=== PATIENT | male | born 1965 | race Caucasian/White ===

== ENCOUNTER 2020-04-01 16:36 | Inpatient (IN) | payer BC ==
[~2020-04-01] VITALS: Ht 175.3 cm; Wt 107.5 kg
[2020-04-01] MEDS ORDERED: PERP8TAB6 PO (22:07)
[2020-04-01] MEDS ORDERED: PROP10TA10 PO (22:07)
[2020-04-01] MEDS ORDERED: IBUP-1984 PO (22:07)
[2020-04-01] MEDS ORDERED: MELA3TAB39 PO (22:07)
[2020-04-01] MEDS ORDERED: OLAN10TA19 PO (22:07)
[2020-04-01] MEDS ORDERED: loperamide 2mg capsule PO PRN (22:15)
[2020-04-01] MEDS ORDERED: hydrOXYzine 25 MG tablet PO PRN (22:15)
[2020-04-01] MEDS ORDERED: acetaminophen 325mg tablet PO PRN (22:15)
[2020-04-01] MEDS ORDERED: magnesium hydroxide 30ml (MOM) UD suspension PO PRN (22:15)
[2020-04-01] MEDS ORDERED: mag hydrox/Alum hydrox/simeth 30ml oral suspension PO PRN (22:15)
--- NOTE | 2020-04-01 22:30 | NUR ---
ADMIT NOTE: The patient ambulated to [facility], accompanied by security. He entered the unit at 2114, and was led to the shower where 2 RNs checked his skin. There were no skin problems identified. He was provided hygiene products and shown the unit. The patient was offered food, but he declined. The patient went to [facility] because he was having thoughts of drowning himself and was worried about thoughts of harming others. He was cooperative with assessment. He is appropriately dressed and groomed. His affect was initially restricted, however when talking more about what was going on he became quite tearful. He reports a history of treatment for Schizophrenia and Bipolar disorder. He reports auditory hallucinations that tell him to do things and degrade him.
[2020-04-01] MEDS ORDERED: ibuprofen tablet 400 MG TABLET PO PRN (22:35)
[2020-04-02] MEDS: LORazepam 1 MG tablet PO PRN (02:35)
[2020-04-02 07:00] VITALS: BP 145/86
[2020-04-02 07:44] LABS: HEMOGLOBIN A1C 5.6 % (4.5-6.2)
[2020-04-02 08:00] LABS: CHOL/HDL RATIO 4.2 (0.00-4.99); CHOLESTEROL 143 MG/DL (0-200); HDL CHOLESTEROL 34 MG/DL (35-60); LDL CHOLESTEROL 94 MG/DL (50-100); TRIGLYCERIDES 79 MG/DL (20-135)
[2020-04-02] MEDS ORDERED: propranolol 10mg tablet PO SCH (08:00)
[2020-04-02] MEDS: perphenazine 8mg tablets PO SCH (08:50)
--- NOTE | 2020-04-02 10:00 | NUR ---
Group Therapy: Process Group This Clinicians goals for this process group were as follows: (1) Ask scaling questions about Patients current anxiety, depression, and irritability symptoms as a check-in. (2) Share psychoeducation about emotional escalation as it relates to stress and negative symptoms, Fight, flight, freeze. (3) Share psychoeducation on principles of mindfulness and emotional relaxation techniques that Patients may utilize to reduce the acuity of unwanted emotional escalation. (4) Provide psychoeducation on the STOPP acronym: Stop, Take a Breath, Observe the situation, Put things into perspective, and, Practice what works. (5) Process Clients thoughts and reflections on this topic within the group milieu. Patient identified experiencing the following levels of anxiety, depression, and anger/irritability while present in the group milieu. Anxiety: 12/10 Depression: 01/07 Anger irritability: 12/10 Patient presented as open and cooperative within the group milieu. Patient was dressed in standard, green, hospital scrubs. Patient presented as verbally engaged during the discussion on physical and mental symptoms that typically accompany elevated states of maladaptive emotional escalation, and coping skills that one could utilized to reduce levels of emotional reactivity. Patient shared that often he tries to, "Ignore," people or situations that tend to lead him to feel unwanted emotional escalation. Patient reported that depression sometimes made him feel, "Jittery," in his body. John Cordero MA, LOI Addendum: 04/02/20 at 1127 by John Cordero SS Amended: Links added.
--- NOTE | 2020-04-02 17:28 | NUR ---
Nursing Progress Note: Legal hold: 5150 Client on involuntary status for DTS. Report received from EDDIE Benavides with use of SBAR. Why are they here: The patient went to [facility] because he was having thoughts of drowning himself and was worried about thoughts of harming others. He was cooperative with assessment. He is appropriately dressed and groomed. His affect was initially restricted, however when talking more about what was going on he became quite tearful. He reports a history of treatment for Schizophrenia and Bipolar disorder. He reports auditory hallucinations that tell him to do things and degrade him. Assessment What has happened this shift: Received pt sleeping at shift change. Pt. later sitting in room looking out the window. Patient reports that his marriage is over and his is asking for a divorce after 30 years of marriage, stating that they just grew apart. Patient states he was getting ready to jump into [place]. Pt is tearful during 1:1. Pt. asking if he can become conserved, explained that this was not an option for him. Patient reports A/H that are commanding in nature. When he is driving the voices are always telling him turn here, do this, do that. Patient appears very depressed, and explains that he feels deeply hurt. S/I, H/I: Denies. A/VH: +A/H. dont do it in reference to calling his . Sleep: Napped. ADL's: Independent. Group attendance: Yes. Were meds taken: Yes. Any med S/E: None noted or reported. Mental Status Exam Appearance: Clean and neat in unit attire. Eye contact: Good. Behavior: Crying, withdrawn. Isolating. Speech: Clear, soft. Mood: Depressed. Affect: Flat. Thought process: Poverty of thought, linear. Thought Content: Divorce. Cognition: A&O x 4. Insight: Fair. Judgment: Fair. Interventions PRN's used: None. Therapeutic interventions: Maintained a safe and therapeutic environment, provided clear and simple instructions, attempted to orient to reality, provided medication education and positive encouragement, encouraged independent performance of ADLs, and maintained Q 15min safety checks. Restraints/seclusion/emergency medication: N/A Justification of Continued Inpatient Treatment: Pt. requires medication adjustments and a safe and supportive environment.
[2020-04-02 20:00] VITALS: BP 151/86
[2020-04-02] MEDS: olanzapine 10mg tablet PO SCH (21:14)
[2020-04-02] MEDS: Melatonin 3mg tablet PO SCH (21:14)
--- NOTE | 2020-04-03 04:06 | NUR ---
Nursing Progress Note: Legal hold: 5150 Expires 04/04 @ 7792 Client on involuntary status for DTS. Report received from EDDIE Garcia with use of SBAR. Why are they here: The patient went to [facility] because he was having thoughts of drowning himself and was worried about thoughts of harming others. He was cooperative with assessment. He is appropriately dressed and groomed. His affect was initially restricted, however when talking more about what was going on he became quite tearful. He reports a history of treatment for Schizophrenia and Bipolar disorder. He reports auditory hallucinations that tell him to do things and degrade him. Assessment What has happened this shift: Received patient sitting in his room looking out his window. Patient was cooperative and calm upon greeting and during 1:1 assessment. Patient endorses AH, but did not want to elaborate on what voice were saying I dont want to say. Patient denies SI, states he doesnt want to hurt himself anymore. Patient reports continued depression 02/07. When patient speaks of his he becomes emotional and tearful. My wants a divorce, I was good to her I dont understand. I still love her. 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 Patient believes someone is after his . Patient tearful and holds up his and as if to say stop, I just hurt. Patients bilateral LEs were red with trace edema. No c/o pain or itching. Will need to monitor. S/I, H/I: Patient denies both. A/VH: +A/H. I dont want to say referring to what voices are telling him. Sleep: Administered 6 mg of Melatonin with effect. See Sleep Assessment for total hours. ADL's: Independent. Group attendance: director operations, no group. Were meds taken: Yes, without hesitation. Any med S/E: None observed or reported. Mental Status Exam Appearance: Neat, clean middle-age man, wearing green unit scrubs. Eye contact: Good. Behavior: Tearful, isolates to room, looking out window. Speech: Clear, soft, normal rate/rhythm. Mood: Depressed. Affect: Flat. Thought process: Linear Thought Content: and upcoming divorce. Cognition: A&O x 4. Insight: Fair. Judgment: Fair. Interventions PRN's used: None. Therapeutic interventions: Maintained a safe and therapeutic environment, active listening provided clear and simple instructions, medication administration/education/monitoring, and maintained Q 15min safety checks. Restraints/seclusion/emergency medication: N/A Justification of Continued Inpatient Treatment: Patient needs interruption of current crisis medication adjustment and monitoring in a safe, therapeutic environment until stable.
[2020-04-03] MEDS: lisinopril 5mg tablet PO SCH (07:46)
[2020-04-03] MEDS: perphenazine 8mg tablets PO SCH (07:46)
[2020-04-03 08:11] VITALS: BP 147/86
--- NOTE | 2020-04-03 10:00 | NUR ---
Group Therapy: Process Group This Clinicians goals for this process group were as follows: (1) Ask scaling questions about Patients current anxiety, depression, and irritability symptoms as a check-in. (2) Share with Patients psychoeducation about the importance of being able to identify safe, and supportive people who can assist them with their mental and emotional needs. (3) Share psychoeducation on interpersonal boundaries and considerations to assist Patients in developing the ability to discern which groups and individuals will be helpful in assisting them during times of emotional escalation and crisis. (4) Review emotional relaxation techniques (5) Engage Patients in discussion of the topics discussed within the group milieu. Patient identified experiencing the following levels of anxiety, depression, and anger/irritability while present in the group milieu. Anxiety: 01/07 Depression: 01/07 Anger/irritability: 11/09 Patient presented as open and cooperative within the group milieu. Patient was dressed in [facility] scrubs. He presented as unobtrusive and verbally cooperative within the group milieu. John Cordero MA, LOI Addendum: 04/03/20 at 1126 by John ESCAMILLA Amended: Links added. Addendum: 04/03/20 at 1132 by Jonh ESCAMILLA Patient made insightful comments about questions that he could ask potential neighbors and/or coworkers to determine whether or not he felt safe bringing them into his inner circles of trust, thus inviting them as potential friends and support people in his mental health treatment. Patient participated freely in a roleplay activity in which this Clinician asked him questions, and answered questions, much like a neighbor would, asking Patient to identify whether or not that kind of discourse would make him fell, "Safe," to want to develop a closer friendship with a neighbor if he talked that way to him. John Cordero MA, FIREARMS ASSEMBLY SUPERVISOR
--- NOTE | 2020-04-03 17:18 | NUR ---
Nursing Progress Note: John Alejandra Legal hold: 5150 Expires 04/04 @ 9577 Client on involuntary status for DTS. Report received from Makayla Why are they here: The patient went to [facility] because he was having thoughts of drowning himself and was worried about thoughts of harming others. He was cooperative with assessment. He is appropriately dressed and groomed. His affect was initially restricted, however when talking more about what was going on he became quite tearful. He reports a history of treatment for Schizophrenia and Bipolar disorder. He reports auditory hallucinations that tell him to do things and degrade him. Assessment What has happened this shift: Received patient from [facility] shift. Client was in bed resting with eyes closed. Respirations were even and unlabored. Client requests door to be closed when engaging with staff and he appears paranoid as evidenced by the statement, "come in and close the door, they should never be allowed to hear our thoughts". Client ambulating on unit and is more visible and social. Client was invited and attended am group activities. Pt. does display LE bilateral erythema with associated itching. CN was made aware and Eliu Louie will be informed. 1+ non-pitting edema present bilateral LE's. S/I, H/I: Patient denies both. A/VH: +A/H. Sleep: Administered 6 mg of Melatonin with effect. See Sleep Assessment for total hours. ADL's: Independent. Group attendance: yes Were meds taken: Yes Any med S/E: None observed or reported. Mental Status Exam Appearance: Neat, clean middle-age man, wearing green unit scrubs. Eye contact: Good. Behavior: Isolates to room. Speech: Clear, soft, normal rate/rhythm. Mood: Depressed. Affect: Flat. Thought process: Linear Thought Content: and upcoming divorce. Cognition: A&O x 4. Insight: Fair. Judgment: Fair. Interventions PRN's used: Therapeutic interventions: Maintained a safe and therapeutic environment, active listening provided clear and simple instructions, medication administration/education/monitoring, and maintained Q 15min safety checks. Restraints/seclusion/emergency medication: N/A Justification of Continued Inpatient Treatment: Patient needs interruption of current crisis medication adjustment and monitoring in a safe, therapeutic environment until stable.
[2020-04-03 20:00] VITALS: BP 136/73
[2020-04-03] MEDS: Melatonin 3mg tablet PO SCH (20:59)
[2020-04-03] MEDS: olanzapine 10mg tablet PO SCH (20:59)
--- NOTE | 2020-04-04 04:07 | NUR ---
Nursing Progress Note: Legal hold: 5150 Expires 04/04 @ 3 Client on involuntary status for DTS. Report received from EDDIE Cunningham with use of SBAR. Why are they here: The patient went to [facility] because he was having thoughts of drowning himself and was worried about thoughts of harming others. He was cooperative with assessment. He is appropriately dressed and groomed. His affect was initially restricted, however when talking more about what was going on he became quite tearful. He reports a history of treatment for Schizophrenia and Bipolar disorder. He reports auditory hallucinations that tell him to do things and degrade him. Assessment What has happened this shift: Received patient sleeping in his room at shift change, respirations even and unlabored. Patient is cooperative with 1:1 assessment and HS medications. Patient reports feeling better. I have to take care of myself before I can take care of anyone else. Patient is tearful, but still able to form words. Patients affect is less restricted and displays an occasional smile. Patient denies SI, I have brief thoughts about hurting myself, but I dont want to . Patient is a little more hopeful. Patient states I do want a cigarette, but when I get a craving I read my book. Patient declines a Nicotine patch if Im going do it, I will do it cold turkey. Patient is looking forward to getting home to his dog. Patient more social with his roommate, observed them joking and laughing. S/I, H/I: Brief thoughts on hurting myself, but I dont want to . Denies H/I. A/VH: Denies both. Sleep: Administered 6 mg of Melatonin with effect. See Sleep Assessment for total hours. ADL's: Independent. Group attendance: cutting room supervisor, no group. Were meds taken: Yes, without hesistation. Any med S/E: None observed or reported. Mental Status Exam Appearance: Neat, clean middle-age man, wearing green unit scrubs. Eye contact: Good. Behavior: Tearful, isolates to room, looking out window. More social with roommate. Speech: Clear, soft, normal rate/rhythm. Mood: Depressed. Affect: Restricted w/occasional smiles. Thought process: Linear Thought Content: Getting better. Cognition: A&O x 4. Insight: Fair, getting better. Judgment: Fair, getting better. Interventions PRN's used: None. Therapeutic interventions: Maintained a safe and therapeutic environment, active listening provided clear and simple instructions, medication administration/education/monitoring, and maintained Q 15min safety checks. Restraints/seclusion/emergency medication: N/A Justification of Continued Inpatient Treatment: Patient needs interruption of current crisis medication adjustment and monitoring in a safe, therapeutic environment until stable.
[2020-04-04 08:00] VITALS: BP 117/81
[2020-04-04] MEDS: perphenazine 8mg tablets PO SCH (08:27)
[2020-04-04] MEDS: lisinopril 5mg tablet PO SCH (08:27)
--- NOTE | 2020-04-04 10:00 | NUR ---
Group Therapy: Process Group This Clinicians goals for this process group were as follows: (1) Ask scaling questions about Patients current anxiety, depression, and irritability symptoms as a check-in. (2) Share psychoeducation about the importance of being able to identify regular activities, support people, and thoughts (Anchors) that contribute to mental health well-being and stability. (3) Share psychoeducation about how the gradual removal of said activities, people and behaviors may lead to the erosion of mental well-being and stability. (4) Encourage Patients to identify support anchors that they need to maintain in their life that will promote their mental and emotional well-being. (5) Engage Patients in discussion of the topics shared within the group milieu. Patient identified experiencing the following levels of anxiety, depression, and anger/irritability while present in the group milieu. Anxiety: 01/07 Depression: 01/07 Anger irritability: 12/10 Patient presented as open and cooperative within the group milieu. Patient was dressed in [facility] clothes. Patient presented as verbally engaged and nonobtrusive within the group milieu. He offered numerous insightful comments on the topic of identifying positive thoughts, actions, and people that could serve as emotional anchors to him, in order for him to maintain baseline emotional and cognitive stability. He identified, "Fishing," as a hobby and activity that he enjoys that helps him to maintain adaptive mood. When asked to summarize any positive takeaways from the material being discussed in the group milieu, Patient stated that he had learned the importance of staying connected to, "Safe people," who could assist him when he was escalating emotionally, so that he could receive needed mental health support. John Cordero MA, CLINICAL ATHLETIC INSTRUCTOR Addendum: 04/04/20 at 1119 by John Cordero SS Amended: Links added.
[2020-04-04] MEDS: LORazepam 1 MG tablet PO PRN ×2 (15:18→16:22)
--- NOTE | 2020-04-04 16:58 | NUR ---
Nursing Progress Note Client on voluntary status Report received from EDDIE Clinton Why are they here: The patient went to [facility] because he was having thoughts of drowning himself and was worried about thoughts of harming others. He was cooperative with assessment. He is appropriately dressed and groomed. His affect was initially restricted, however when talking more about what was going on he became quite tearful. He reports a history of treatment for Schizophrenia and Bipolar disorder. He reports auditory hallucinations that tell him to do things and degrade him. Assessment What has happened this shift: Pt in bed sleeping. He joined the others in the CR for breakfast. Pt later was back in his bed during his am assessment and medication pass. Pt compliant with medications. Pt later came up to this nurse and said, "the voices they won't stop and are getting worse in my head." He described the voices as being "all jumbled up scattered in my head." Ativan 1mg provided and an hour later repeated per pt request. Pt relaxed for a brief time on his bed then was later seen pacing the halls and pushing a pt in his wheelchair. S/I, H/I: Patient denies both. A/VH: +A/H. Sleep: Rested some in the am after breakfast ADL's: Independent. Group attendance: No Were Meds taken: Yes Any med S/E: None observed or reported. Mental Status Exam Appearance: Clean; hospital green scrubs Eye contact: Good. Behavior: Nice, social Speech: audible. normal rate/rhythm. Mood: Depressed. Affect: Flat. Thought process: Linear Thought Content: Not knowing where to go from here; feeling lost Cognition: A/Ox4 Insight: Fair. Judgment: Fair. Interventions PRN's used: Ativan 2mg PO Therapeutic interventions: 1:1 am assessment w/ medication administration/education/monitoring, encouraged rest and prompted attendance to am group and to take a shower, and maintained Q 15min safety checks. Restraints/seclusion/emergency medication: N/A Justification of Continued Inpatient Treatment: Patient needs interruption of current crisis medication adjustment and monitoring in a safe, therapeutic environment until stable.
[2020-04-04 20:00] VITALS: BP 130/82
[2020-04-04] MEDS: Melatonin 3mg tablet PO SCH (20:36)
[2020-04-04] MEDS: olanzapine 10mg tablet PO SCH (20:36)
--- NOTE | 2020-04-05 03:00 | NUR ---
Nursing Progress Note: Legal hold: Voluntary Client on voluntary status for DTS. Report received from EDDIE Cunningham with use of SBAR. Why are they here: The patient went to [facility] because he was having thoughts of drowning himself and was worried about thoughts of harming others. He was cooperative with assessment. He is appropriately dressed and groomed. His affect was initially restricted, however when talking more about what was going on he became quite tearful. He reports a history of treatment for Schizophrenia and Bipolar disorder. He reports auditory hallucinations that tell him to do things and degrade him. Assessment What has happened this shift: Received patient sitting in his room looking out his window. Patient is cooperative with 1:1 assessment. Patient reports feeling better and is happy he is staying a longer. Patient states he is feeling sad today divorce does that to you. No one should have to go through that, but Im handling it. Erythema still noted on bilateral LE, with trace +1 edema. Patient denies SI, VH. Patient denies AH, states even the ringing in my head has stopped. Patient contacted his friend who is caring for his dog, patient becomes a little tearful when speaking of his dog. Patient retires to bed shortly after HS medication admin. S/I, H/I: Denies both. A/VH: Denies both. Sleep: Administered 6 mg of Melatonin with effect. See Sleep Assessment for total hours. ADL's: Independent. Patient showered this shift. Group attendance: insurance and benefits clerk, no group. Were meds taken: Yes, without hesitation. Any med S/E: None observed or reported. Mental Status Exam Appearance: Neat, clean middle-age man, wearing green unit scrubs. Eye contact: Good. Behavior: Cooperative, isolates to room, looking out window. Speech: Clear, soft, normal rate/rhythm. Mood: Depressed. Affect: Flat Thought process: Linear Thought Content: Getting better. Cognition: A&O x 4. Insight: Fair, getting better. Judgment: Fair, getting better. Interventions PRN's used: None. Therapeutic interventions: Maintained a safe and therapeutic environment, active listening provided clear and simple instructions, medication administration/education/monitoring, and maintained Q 15min safety checks. Restraints/seclusion/emergency medication: N/A Justification of Continued Inpatient Treatment: Patient needs interruption of current crisis medication adjustment and monitoring in a safe, therapeutic environment until stable. Addendum: 04/05/20 at 0539 by Anh Birch RN Patient woke up c/o of headache 5/10. Tylenol administered with effect. Pt c/o of LE itching. Increased redness and irritation from patient scratching. Patient was given some barrier cream, which he said helped with the itching. Will endorse to next shift.
[2020-04-05] MEDS: acetaminophen 325mg tablet PO PRN ×2 (05:31→13:47)
[2020-04-05 08:00] VITALS: BP 117/79
[2020-04-05] MEDS: perphenazine 8mg tablets PO SCH (08:04)
[2020-04-05] MEDS: lisinopril 5mg tablet PO SCH (08:04)
--- NOTE | 2020-04-05 16:04 | NUR ---
Nursing Progress Note Client on voluntary status Report received from EDDIE Kamara Why are they here: The patient went to [facility] because he was having thoughts of drowning himself and was worried about thoughts of harming others. He was cooperative with assessment. He is appropriately dressed and groomed. His affect was initially restricted, however when talking more about what was going on he became quite tearful. He reports a history of treatment for Schizophrenia and Bipolar disorder. He reports auditory hallucinations that tell him to do things and degrade him. Assessment What has happened this shift: Pt isolates most of the shift. He c/o of his feet hurting so he soaked his feet. He c/o of a ALSTON and was given Tylenol. He later came to this nurse and stated, "I no longer feel safe here." He also asked and received help calling a neighbor he wants to come pick pulling machine tender his house garcia to get his mail. S/I, H/I: Patient denies both. A/VH: +A/H. Sleep: Rested after breakfast ADL's: Independent. Group attendance: No Were Meds taken: Yes Any med S/E: None observed or reported. Mental Status Exam Appearance: Clean; hospital scrubs Eye contact: Good. Behavior: Nice, social Speech: audible. normal rate/rhythm. Mood: Depressed. Affect: Flat. Thought process: Linear Thought Content: Not knowing where to go from here; feeling lost Cognition: A/Ox4 Insight: Fair. Judgment: Fair. Interventions PRN's used: N/A Therapeutic interventions: 1:1 am assessment w/ medication administration/education/monitoring, encouraged rest and prompted attendance to am group and to take a shower, and maintained Q 15min safety checks. Restraints/seclusion/emergency medication: N/A Justification of Continued Inpatient Treatment: Patient needs interruption of current crisis medication adjustment and monitoring in a safe, therapeutic environment until stable.
[2020-04-05 20:00] VITALS: BP 130/80
[2020-04-05] MEDS: Melatonin 3mg tablet PO SCH (20:53)
[2020-04-05] MEDS: oxcarbazepine 150mg tablet PO SCH (20:53)
[2020-04-05] MEDS: OLANZAPINE 5 MG TABLET PO SCH (20:54)
--- NOTE | 2020-04-06 01:34 | NUR ---
Nursing Progress Note: [employer] Legal hold: Voluntary Client on voluntary status for DTS. Report received from EDDIE Cunningham with use of SBAR. Why are they here: The patient went to [facility] because he was having thoughts of drowning himself and was worried about thoughts of harming others. He was cooperative with assessment. He is appropriately dressed and groomed. His affect was initially restricted, however when talking more about what was going on he became quite tearful. He reports a history of treatment for Schizophrenia and Bipolar disorder. He reports auditory hallucinations that tell him to do things and degrade him. Assessment What has happened this shift: Pt resting in his room for entire shift, rising to look out window for a short time. Pt states he is doing better this evening, feeling safe and not suicidal. Pt endorses AH and depression 05/09 and anxiety 04/09 but that he has been collecting thoughts and feelings, getting better but still not in touch with all of them. Pt compliant with medications and is hoping recent changes will lead to improved sleep this evening. S/I, H/I: Denies both A/VH: +AH, Negative mostly Sleep: See Sleep Assessment ADL's: Independent Group attendance: N/A Were meds taken: Yes Any med S/E: None observed nor reported. Mental Status Exam Appearance: Neat, Clean, wearing unit scrubs Eye contact: Good Behavior: Cooperative, Isolated to room Speech: Clear, soft, normal rate/rhythm. Mood: Okay Affect: Blunted with brightening Thought process: Linear Thought Content: Feeling safer, but tired Cognition: A/Ox4 Insight: Fair to good Judgment: Fair to good Interventions PRN's used: None Therapeutic interventions: Maintained a safe and therapeutic environment, active listening provided clear and simple instructions, medication administration/education/monitoring, and maintained Q 15min safety checks. Restraints/seclusion/emergency medication: N/A Justification of Continued Inpatient Treatment: Patient needs interruption of current crisis medication adjustment and monitoring in a safe, therapeutic environment until stable.
[2020-04-06 07:51] VITALS: BP 134/81
[2020-04-06] MEDS: oxcarbazepine 150mg tablet PO SCH ×2 (08:16→20:21)
[2020-04-06] MEDS: lisinopril 5mg tablet PO SCH (08:16)
[2020-04-06] MEDS: LORazepam 1 MG tablet PO PRN (09:22)
[2020-04-06] MEDS: acetaminophen 325mg tablet PO PRN (09:23)
[2020-04-06] MEDS ORDERED: OLANZapine 2.5MG tablet PO PRN (11:55)
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
[2020-04-06 20:00] VITALS: BP 104/57
[2020-04-06] MEDS: OLANZAPINE 5 MG TABLET PO SCH (20:22)
[2020-04-06] MEDS: Melatonin 3mg tablet PO SCH (20:22)
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
[2020-04-07] MEDS: LORazepam 1 MG tablet PO PRN (05:23)
[2020-04-07] MEDS: lisinopril 5mg tablet PO SCH (08:00)
[2020-04-07 08:45] VITALS: BP 120/88
[2020-04-07] MEDS: oxcarbazepine 150mg tablet PO SCH ×2 (11:15→20:29)
--- NOTE | 2020-04-07 12:49 | NUR ---
Eating well, 75-100% PO intake. No nutrition problem. Recommend: 1. continue regular diet 2. bowel care as needed 3. weekly weights Addendum: 04/07/20 at [address] Amended: Links added.
--- NOTE | 2020-04-07 16:55 | NUR ---
Nursing Progress Note Client on voluntary status Report received from EDDIE Wong Why are they here: The patient went to [facility] because he was having thoughts of drowning himself and was worried about thoughts of harming others. He was cooperative with assessment. He is appropriately dressed and groomed. His affect was initially restricted, however when talking more about what was going on he became quite tearful. He reports a history of treatment for Schizophrenia and Bipolar disorder. He reports auditory hallucinations that tell him to do things and degrade him. Assessment What has happened this shift: Pt stayed in his room only came out for meals. When approached he stated, "I have a lot to think about." Quiet and isolative today. Out for meals. Appears depressed. S/I, H/I: Patient denies both. A/VH: +A/H. Sleep: Short nap right after lunch ADL's: Independent. Group attendance: No Were Meds taken: Yes Any med S/E: None observed or reported. Mental Status Exam Appearance: Clean; scrubs Eye contact: Good. Behavior: Cooperative, isolating today Speech: Audible, normal rate and rhythm Mood: Depressed Affect: Flat Thought process: Unknown, quiet today Thought Content: c/o of loneliness Cognition: A/Ox4 Insight: Fair. Judgment: Fair. Interventions PRN's used: N/A Therapeutic interventions: 1:1 am assessment, therapeutic communication w/active listening, provided medication administration/education/monitoring, encouraged and prompted him to come out of his room and socialize w/peers, and maintained Q 15min safety checks. Restraints/seclusion/emergency medication: N/A Justification of Continued Inpatient Treatment: Patient needs interruption of current crisis medication adjustment and monitoring in a safe, therapeutic environment until stable. Assessment
[2020-04-07 20:00] VITALS: BP 118/78
[2020-04-07] MEDS: OLANZAPINE 5 MG TABLET PO SCH (20:28)
[2020-04-07] MEDS: acetaminophen 325mg tablet PO PRN (20:29)
[2020-04-07] MEDS: Melatonin 3mg tablet PO SCH (20:29)
--- NOTE | 2020-04-08 02:35 | NUR ---
Nursing Progress Note: Client on voluntary status for DTS Report received from EDDIE Cunningham Why are they here: The patient went to [facility] because he was having thoughts of drowning himself and was worried about thoughts of harming others. He was cooperative with assessment. He is appropriately dressed and groomed. His affect was initially restricted, however when talking more about what was going on he became quite tearful. He reports a history of treatment for Schizophrenia and Bipolar disorder. He reports auditory hallucinations that tell him to do things and degrade him. Assessment What has happened this shift: Pt isolated to room majority of shift, exiting only to attend snack and watch a little TV. Pt endorses AH, and depression / and anxiety 2/10. Pt said he feels relaxed and calm this evening, which is reflected in his mood. He stated he attempted to reach out to his friend, Chase Wise, whom is his primary connection for when I leave, but it went to voice mail and he hasnt called back yet. Pt compliant with medications and went to sleep shortly after administration, waking once to obtain a few crackers. S/I, H/I: Denies both A/VH: +A/H, Voices are primarily background noise this evening Sleep: Sleeping through the night. See Sleep Assessment. ADL's: Independent. Group attendance: N/A Were Meds taken: Yes Any med S/E: None observed nor reported Mental Status Exam Appearance: Clean, wearing unit scrubs Eye contact: Good Behavior: Cooperative, Isolative, sleeping on and off, Attended snack and watched some TV Speech: Audible, normal rate Mood: Better, Pt appears depressed Affect: Flat Thought process: Linear, No paranoias or delusions endorsed during assessment Thought Content: feeling calmer, attempting to make contact with his friend Cognition: A/Ox4 Insight: Poor to fair Judgment: Fair Interventions PRN's used: Tylenol 650mg for bilateral feet pain to good effect Therapeutic interventions: 1:1 am assessment, redirection from peer; therapeutic communication w/active listening, provided medication administration/education/monitoring, encouraged and prompted attendance of group, and maintained Q 15min safety checks. Restraints/seclusion/emergency medication: N/A Justification of Continued Inpatient Treatment: Patient needs interruption of current crisis medication adjustment and monitoring in a safe, therapeutic environment until stable. Addendum: 04/08/20 at 0538 by Judith Shepherd RN Pt requested and took shower at 0515 then sat quietly looking out the window.
[2020-04-08] MEDS: acetaminophen 325mg tablet PO PRN (06:09)
[2020-04-08 08:11] VITALS: BP 130/74
[2020-04-08] MEDS: lisinopril 5mg tablet PO SCH (08:34)
[2020-04-08] MEDS: oxcarbazepine 150mg tablet PO SCH (08:34)
--- NOTE | 2020-04-08 10:00 | NUR ---
Group Therapy: Process Group This Clinicians goals for this process group were as follows: (1) Ask scaling questions about patients current anxiety, depression, and irritability symptoms as a check-in. (2) Share psychoeducation about emotional/situational triggers as they relate to the onset of unwanted mental health symptoms. (3) Identify examples of emotional/situational triggers within the group milieu. (4) Share psychoeducation on interventions as tools to reduce emotional escalation. (5) Identify several interventions within the group milieu that patients may utilizing in reducing emotional escalation caused by emotional/situational triggers. (6) Engage patients in discussion of the topics shared within the group milieu. Patient identified experiencing the following levels of anxiety, depression, and anger/irritability while present in the group milieu. Anxiety: 01/07 Depression: 12/10 Anger/irritability: 02/07 Patient presented as open and cooperative within the group milieu. Patient was dressed in standard [facility] scrubs. Patient presented as unobtrusive and verbally engaged within the group milieu. Patient often exclaimed, "Good answer," when he believed that a fellow Patient offered an answer or insight that sounded positive to him. Patient often freely interjected thoughts, and comments when this Clinician was writing on the white board, thoughts, feelings in the body, and interventions that one could utilize, that were associated with specific emotional triggers--such as being depressed, anxious, etc.. Patient presented as unobtrusive within the group milieu. John Cordero MA, OLI Addendum: 04/08/20 at 1145 by John Cordero SS Amended: Links added.
[2020-04-08] MEDS ORDERED: HYDR-3686 PO (13:28)
[2020-04-08] MEDS ORDERED: OXCA150T14 PO (13:28)
[2020-04-08] MEDS ORDERED: PERP2TAB5 PO (13:28)
[2020-04-08] MEDS ORDERED: OLAN15TA17 PO (13:28)
[2020-04-08] MEDS ORDERED: LISI-642 PO (13:28)
--- NOTE | 2020-04-08 15:46 | NUR ---
Nursing Discharge Note Pt discharged from [facility] at 1540 to a freind who is picking him up to go home. Pt walked down to lob to meet his freind by [employer]. Pt in euthymic mood with flat affect and denies SI. He was in no acute physical or emotional distress and has been improving since admission. Pt's belongings inventoried and returned to him. Pt understands discharge instructions and did not want nicotine replacement.
== END 2020-04-08 15:45 | disposition home or self-care (01) | DRG 885 ==
LOC: ADULT MH 20:59
PROVIDERS: ADMIT Psychiatry & Neurology Psychiatry; ATTEND Psychiatry & Neurology Psychiatry
DX: F31.30 Bipolar disorder, current episode depressed, mild or moderate severity, unspecified (principal); R45.851 Suicidal ideations; F17.210 Nicotine dependence, cigarettes, uncomplicated; I10 Essential (primary) hypertension; F41.9 Anxiety disorder, unspecified; Z79.899 Other long term (current) drug therapy
CPT/HCPCS: 36415; 80061; 83036; 87081; Q0175; Q0177